=== PATIENT | male | born 1950 | race Caucasian/White ===

== ENCOUNTER 2018-10-05 05:38 | Inpatient (IN) ==
[2018-10-05] MEDS ORDERED: ceFAZolin Inj 2gm (Premix) 2 GM/50 ML BAG IV ONE ×2 (05:44→06:00)
[2018-10-05] MEDS ORDERED: Vancomycin Inj 1gm vial ONE ×2 (05:44→07:21)
[2018-10-05] MEDS ORDERED: Lactated Ringers 1,000 ML PRIMARY IV ONE ×7 (05:44→16:09)
[2018-10-05] MEDS ORDERED: LIDOCAINE W/ SODIUM BICARB 0.5 ML SYR ONE (05:45)
[2018-10-05] MEDS ORDERED: Sodium Chloride 0.9% 250 ML ONE ×2 (05:45→07:24)
[2018-10-05] MEDS ORDERED: LIDOCAINE W/ SODIUM BICARB 0.5 ML SYR SUBD ONE (06:00)
[2018-10-05] MEDS ORDERED: Nasal Sanitizer POPSWAB ampule 3 AMP (Nozin) PREOP DOSE ENOS SCH (06:00)
[2018-10-05 06:07] LABS: BILIRUBIN,URINE NEGATIVE (NEG); CLARITY,URINE CLEAR (CLEAR); COLOR,URINE YELLOW; GLUCOSE, URINE (UA) NEGATIVE (NEG); OCCULT BLOOD,URINE SMALL (NEG); PH,URINE 5.5 (5.0-8.5); PROTEIN,URINE NEGATIVE (NEG); UROBILINOGEN,URINE 0.2 mg/dL (0.2)
[2018-10-05 06:17] LABS: RBC,URINE 0 /hpf; SQUAMOUS EPITHELIAL CELL,UR RARE; URINE SAMPLE TYPE CLEAN CATCH URINE; WBC,URINE 0
[2018-10-05] MEDS ORDERED: IPRATROPIUM/ALBUTEROL SULFATE 3 ML NEB NEB ONE ×2 (06:51→06:56)
[2018-10-05] MEDS ORDERED: Sodium Chloride 0.9% vial 40 ML ONE (07:20)
[2018-10-05] MEDS ORDERED: BUPIVACAINE 0.25% W/ EPI - 10 ML VIAL ONE (07:20)
[2018-10-05] MEDS ORDERED: Gentamicin Inj 40 MG/ML VIAL ONE (07:20)
[2018-10-05] MEDS ORDERED: Sodium Chloride 0.9% vial 10 ML ONE (07:21)
[2018-10-05] MEDS ORDERED: PROPOFOL 10 MG/1 ML (200 MG/20 ML) VIAL IV ONE ×5 (07:21→18:00)
[2018-10-05] MEDS ORDERED: MIDAZOLAM 5 MG/1 ML ONE (07:21)
[2018-10-05] MEDS ORDERED: fentaNYL Inj 250 MCG/5 ML VIAL ONE (07:21)
[2018-10-05] MEDS ORDERED: BACITRACIN 50,000 UNIT VIAL IRRIG ONE ×3 (07:21→16:18)
[2018-10-05] MEDS ORDERED: Propofol 1,000 MG/100 ML VIAL IV ONE ×4 (07:21→14:37)
[2018-10-05] MEDS ORDERED: REMIFENTANIL 1 MG/1 ML IV ONE ×3 (07:22→15:26)
[2018-10-05] MEDS ORDERED: REMIFENTANIL HCL 2 MG VIAL IV ONE ×3 (07:22→15:26)
[2018-10-05] MEDS ORDERED: LIDOCAINE MPF 2% - 5 ML (20 MG/1 ML) ONE (07:29)
[2018-10-05] MEDS ORDERED: DEXAMETHASONE PF 10 MG/1 ML VIAL ONE (07:32)
[2018-10-05] MEDS ORDERED: LIDOCAINE HCL 2 % 10 ML JELLY URO-JECT TOPICAL ONE ×2 (07:48→08:43)
[2018-10-05] MEDS ORDERED: KETAMINE HCL 100 MG/2 ML SYRINGE IV ONE (07:49)
[2018-10-05] MEDS ORDERED: ceFAZolin 1 GM VIAL ONE ×2 (10:55→14:27)
[2018-10-05] MEDS ORDERED: Sodium Chloride 0.9% vial 20 ML ONE ×2 (11:27→16:18)
[2018-10-05] MEDS ORDERED: ePHEDrine Inj 50 MG/ML AMP ONE (16:42)
[2018-10-05] MEDS ORDERED: BUPivacaine Inj 0.25% PF - 10ml vial ONE (17:12)
[2018-10-05] MEDS ORDERED: BUPivacaine Liposome/PF (Exparel) Inj 20ml vial INFIL ONE (17:12)
[2018-10-05] MEDS ORDERED: Acetaminophen 1000mg Inj 1,000 MG/100 ML VIAL IV ONE (17:13)
[2018-10-05] MEDS ORDERED: HYDROmorphone 2 MG/1 ML ONE ×3 (17:18→20:43)
--- NOTE | 2018-10-05 18:41 | GEN.OPNOTE ---
Operative Note Surgery Date: 10/05/18 Preoperative Diagnosis: 1. Focal right-sided low back pain, mechanical in nature. 2. Status post recent left L2-3 microlumbar discectomy and bilateral L3-4 partial laminectomies and bilateral medial facetectomies performed by Dr. Ivy Medley on 09/17/2017. 3. Status post a remote L5-S1 anterior interbody and anterior and posterior instrumented fusion. 4. Multilevel advanced lumbar degenerative disc disease L2-3, L3-4, and L4-5 with collapse of the majority of the disc space at each level, pneumatization of the residual disc at each level, and marked sclerosis of the bony endplates. 5. Degenerative moderate dextroscoliosis centered at L2-3. 6. Lateral listhesis and angulation of L4 on L5 and L3 on L4. 7. Severe right L4 neural foraminal stenosis. Postoperative Diagnosis: 1. Focal right-sided low back pain, mechanical in nature. 2. Status post recent left L2-3 microlumbar discectomy and bilateral L3-4 partial laminectomies and bilateral medial facetectomies performed by Dr. Ivy Medley on 09/17/2017. 3. Status post a remote L5-S1 anterior interbody and anterior and posterior instrumented fusion. 4. Multilevel advanced lumbar degenerative disc disease L2-3, L3-4, and L4-5 with collapse of the majority of the disc space at each level, pneumatization of the residual disc at each level, and marked sclerosis of the bony endplates. 5. Degenerative moderate dextroscoliosis centered at L2-3. 6. Lateral listhesis and angulation of L4 on L5 and L3 on L4. 7. Severe right L4 neural foraminal stenosis. Procedure: 1.) Redo L2-3 lumbar laminectomy with medial facetectomies and foraminotomies bilaterally for decompression of central canal stenosis and severe left lateral recess stenosis. (CPT code: 23108). 2.) Redo L3-4 lumbar laminectomy with medial facetectomies and foraminotomies bilaterally for d ecompression of central canal and bilateral lateral recess stenosis. (CPT code: 11466). 3.) L4-5 lumbar laminectomy with medial facetectomies and foraminotomies bilaterally for decompression of the central canal and severe lateral recess and neuroforaminal stenosis. (CPT code: 56461). 4.) Arthrodesis, combined posterolateral with posterior interbody technique, L2-3 in preparation for interbody and posterolateral fusion of the L2-3 level. (CPT code: 52155). 5.) Arthrodesis, combined posterolateral with posterior interbody technique, L3-4 in preparation for interbody and posterolateral fusion of the L3-4 level. (CPT code: 13164). 6.) Arthrodesis, combined posterolateral with posterior interbody technique, L4-5 in preparation for interbody and posterolateral fusion of the L4-5 level. (CPT code: 56359). 7.) Insertion of a 7mm x 11mm x 23mm Tritanium PL titanium lumbar interbody cage, filled in the center with autograft into the L2-3 interspace for fusion of the L2-3 interspace. (CPT code: 73250). 8.) Insertion of a 7mm x 11mm x 28mm Tritanium PL titanium lumbar interbody cage, filled in the center with autograft into the L3-4 interspace for fusion of the L3-4 interspace. (CPT code: 98230). 9.) Insertion of a 8mm x 11mm x 28mm Tritanium PL titanium lumbar interbody cage, filled in the center with autograft into the L4-5 interspace for fusion of the L4-5 insterspace. 10.) Posterolateral segmental instrumentation L2-L5 using the Erasmo Neel 3 pedicle screw and israel system. (CPT code: 67782). 11.) Use of autograft harvested through the same incision, cleaned of soft tissue and morselized for interbody and posterolateral fusion. (CPT code: 45102). 12.) Use of 20cc of Erasmo Vitoss Bimodal Synthetic bone product (implantable allograft), 2cc of Imbibe (implantable allograft), 30cc of Erasmo BIO DBM Putty Plus Cancellous (implantable allograft), 60cc cancellous bone chips (implantable allograft) for interbody and posterolateral fusion. (CPT code: 56858). 13.) Use of Axonify computer assisted neuronavigation for cannulization of the L2, L3, L4, and L5 pedicles bilaterally for the subsequent placement of the L2, L3, L4, and L5 pedicle scres bilaterally. (CPT code: 16976). 14.) Use of intra- operative fluoroscopy for localization of the correct surgical levels and for the final confirmation of the placement of the intervertebral cages and for the final confirmation of the position of the posterolateral hardware elements. 15.) Use of intra-operative neuromonitoring including free running EMG's, triggered EMG's, and SSEP's. Surgeon: Kris Tobias MD Alumni Relations Officer: EDSON Killian Anesthesia Provider: Paulo Gordon CRNA Anesthesia Type: General Estimated Blood Loss (mL): 450 Fluids: See anesthesia record Pathology: None Indications: Mr. Adhikari is a 68 year old gentleman who is a previous patient of Dr. Cooper who underwent a left L2-3 microlumbar discectomy and bilateral L3-4 laminectomies with medial facetectomies performed on 09/07/17. Mr. Adhikari has continued to have right sided low back pain despite the surgical procedure. He is also status post a previous L5-S1 fusion. Mr. Adhikari had a lumbar myelogram post myelogram CT that demonstrated his L5-S1 posterior lumbar interbody fusion with posterior facet screws. He is completely fused at this level. He has marked degenerative disc disease at L2-3, L3-4 and L4-5 with essentially collapse of the disc spaced and pneumatization of the small residual disc space at each of these levels. There is marked endplate sclerosis at L2-3 on the left, L3-4 across the entire level but more predominant on the left and L4-5 predominantly on the right. There is lateral listhesis of L4 and L5 and angulation of the disc spaces at L3-4 and L4-5. This study demonstrated facet arthropathy and hypertrophy at L2-3 with widening of the facet joint on the left, a broad based disc bulge and ligamentous hypertrophy at this level producing mild central canal stenosis. At L2-3, there is facet arthropathy and hypertrophy with widening of the facet joints bilaterally but with a canal remaining patent at this level previously decompressed. At L4-5, there is marked facet arthropathy and hypertrophy particularly at the right L4-5 facet joint with pneumatization of this facet joint. There is severe narrowing of the L4 neuroforamen on the right. His symptoms failed to improve with non-operative therapies. We had discussed the option of proceeding with surgical treatment. We discussed that surgical treatment in my opinion would require a L2-3, L3-4, L4-5 interbody and posterolateral instrumented fusion. He wished to proceed with the surgical procedure. Findings: 1.) Severe left L2-3 lateral recess stenosis. 2.) Bilateral severe L3-4 lateral recess stenosis. 3.) Severe right L4 neuroforaminal stenosis. 4.) Extruded synovial tissue in the left lateral recess and bilateral L3-4 lateral recesses. Complications: None Operative Summary: Mr. Adhikari was met in the preoperative area. His surgical history and physical was reviewed. The procedure to be performed was confirmed with Mr. Adhikari and he was in agreement with the procedure and this matched what was written on the patient's consent form. Any questions that he or his had were answered before he was taken back to the operating room suite. Mr. Adhikari was brought back to the operating room suite and put under general anesthesia and intubated by the anesthesia staff. He had a Bhakta catheter placed in his bladder for the procedure. He had pneumatic compression hose placed on his lower legs bilaterally. Mr. Adhikari was carefully rolled over onto the Siva surgical table with his arms gently positioned upwards with her shoulders abducted less than 90. His arms were well-padded with foam padding on top of the padding the surgical armboards. The region of his chest and axilla was checked bilaterally to make sure that there are no pressure points over the region of the brachial plexus bilaterally. His nipples were checked be below the chest pad of the Siva table no pressure points. All bony prominences were well padded. His Bhakta catheter was checked be free from kinks. His pneumatic compression hose was attached pneumatic compression device. Mr. Adhikari's old incision from his previous surgeries was demarcated and extended rostrally and caudally with a skin marker with several crosshatches being made with a skin marker as well. He was prepped and draped in the usual and standard fashion. He was given 2 g of Ancef and 1 g of vancomycin IV for perioperative antibiosis. He was given 10 mg of Decadron IV. A standard surgical timeout was performed identifying the correct patient, the correct procedure, and the correct equipment being available for the procedure. The intended skin incision was injected subcutaneously with quarter percent Marcaine with 1 in 200,000 epinephrine. 20 mL of local anesthetic was used. The skin was incised with a 10 blade scalpel and all dermal and superficial bleeding points coagulated with bipolar cautery. Dissection was continued down through the subcutaneous tissue and scar tissue from the patient's previous surgeries down to the lumbosacral fascia. 2-0 Ethibond sutures were encountered from his previous fascial closures which were cut and removed. The fascia was incised along the borders of the spinous processes bilaterally and a defect in the posterior tension band with a missing spinous process filled in with scar tissue was noted and felt to be the location the patient's previous L3-4 laminectomy. Subperiosteal dissection was performed down the spinous processes and out over the lamina except in the region of his previous surgeries, the L2-3 level on the left and the L3-4 level bilaterally with the dissection was taken out laterally earlier in these regions to avoid entering into any previously decompressed areas of the spine. The final exposure was from the inferior aspect of the L5 1 lamina down to over the L5 lamina and the upper part of the sacrum bilaterally and laterally out over the L1-2, L2-3, L3-4, L4-5, and L5-S1 facet joints bilaterally. The dissection was taken out laterally over the L2, L3, L4, and L5 transverse processes. Cerebellar and Gelpi retractors were placed for self-retaining retraction. Soft tissue was cleaned over the posterior aspect of the spine using the large straight curette and a large Leksell rongeur. The heads of the L5-S1 facet screws were identified. The L5 and S1 spinous processes were gently tugged on confirming that these levels were completely fused with no motion between them, as was expected by pre-operative imaging. The posterior aspect of the hypertrophied L2-3, L3-4, and L4-5 facet joints were removed with a large Leksell rongeur. Extensive decortication was then performed of the L2, L3, L4, and L5 transverse processes as well as the lateral aspect of the L2-3 and posterior and lateral aspects of the L3-4, and L4-5 facet joints. The upper part of the sacrum was decorticated as well bilaterally. All decortication was performed with the Revert.IO high-speed electric drill with a matchstick bit. The bone dust created was collected and saved to be used as autograft for the fusion portion of the procedure. The 99 Fahrenheit neuro navigation reference arc was securely attached to the L1 spinous process and a spin was performed with the cookdinner 3-D fluoroscopy unit. The 99 Fahrenheit neuro navigation pedicle finder was then used to cannulate the L2, L3, L4, L5 pedicles bilaterally. A Jamshidi needle was placed into the L2 pedicle on the left and 20 mL of vertebral body bone marrow was collected and saved to be used to saturate the Erasmo Vitoss Bimodal synthetic bone product (allograft) for the posterior lateral fusion portion of the procedure. The internal aspect of the pedicles were all palpated with a small ball-tip instrument to assure that there are no cortical breaches. The pedicles were then all tapped with the appropriate size Erasmo Neel 3 pedicle tap. The internal aspect of the pedicles were then palpated with ball-tip instrument again. The pedicle screws were then placed. 5.5 x 55 mm pedicle screws were placed into the L2, L3, and L4 pedicles bilaterally. 6.5 x 60 mm pedicle screws were placed into the L5 pedicles bilate rally. The pedicle screws all obtained good purchase in the pedicle and vertebral body bone at each level bilaterally. The pedicle screws were then all interrogated with triggered EMGs all demonstrated to be over 30 mA in impedance indicating that they were not in close proximity to nerve structures. Another spin was performed the 3-D [facility] fluoroscopy unit providing further confirmation of the pedicle screws were indeed within the confines of the pedicles at each level bilaterally and that the pedicle screws were bicortical or nearly bicortical in purchase as intended. Attention was turned to the decompression portion of the procedure. The high- speed drill with a matchstick bit was used to extend the partial L3 laminectomy rostrally and the medial facetectomies laterally bilaterally. A complete laminectomy of L3 was performed. The hypertrophied ligament from underneath the remaining aspect of the L3 lamina was completely removed. A small straight curette was used to carefully dissect the scar tissue over the dura from the lateral aspect of the bony canal and lateral recesses bilaterally. Surgical findings at this level included central canal stenosis and bilateral lateral recess stenosis significant bilaterally but severe on the right secondary to extruded synovium in the lateral recesses bilaterally but with a much larger amount of extruded synovial tissue in the right lateral recess. This extruded synovial tissue was very carefully and tediously dissected off of the thecal sac and removed decompressing the lateral recesses bilaterally. The exiting L3 and transversing L4 nerves were identified. Foraminotomies were performed bilaterally. A partial laminectomy of L2 was then performed bilaterally, which was a redo procedure on the left. A medial facetectomy was performed on the right redo medial facetectomy was performed on the left. Surgical findings included central canal stenosis as well as left lateral recess stenosis secondary to a combination of extruded synovium and thickened ligamentum flavum as well as herniated disc material into the lateral recess at this level. All of the soft tissues were carefully dissected from the thecal sac and removed decompressing the left lateral recess. Foraminotomies were performed bilaterally. A complete L4 laminectomy was performed with partial L5 laminectomy removing the leading edge of the L5 lamina and medial facetectomies were performed as well. There was central canal but particularly lateral recess stenosis encountered bilaterally severe on the right and severe right L4 neuroforaminal stenosis was identified as well. Much of this was secondary to bony overgrowth from the medial aspect of the L4-5 facet joint but also secondary to thickened ligamentum flavum. The lateral recess was completely decompressed by the removal of the bony arthropathy and hypertrophied ligament. Foraminotomies were performed bilaterally decompressing the severe right L4 neuroforaminal stenosis. Excellent decompression of the spinal canal lateral recesses nerve foramen was assured both by visual inspection as well as by palpation with the Dickens instrument in the canal in the lateral recesses and around the nerve structures passing the instrument above and below the exiting nerve roots as they exited out the neuroforamen and passing the Dickens instrument above and below the transversing nerve roots as it transversed medial to the pedicles. The medial facetectomy on the left at L2-3 and the medial facetectomies on the right at L3-4 and L4-5 were extended laterally with a high-speed drill with a matchstick bit to provide the proper exposure needed for the placement of the intervertebral cages for the interbody fusion portion of the procedure. The ventral aspect of the dura at the L2-3 level and at the L3-4 level was carefully dissected from its scar tissue attachments to the disc space from the previous surgeries at these levels. This allowed the dura and transversing nerve roots a t these levels to be carefully retracted with the Lea nerve root retractor which was performed at the L4-5 level on the right as well with the same instrument. At each level annulotomy as were performed with a 15 blade scalpel with disc material being removed from the disc space with pituitary rongeurs. Additional disc and cartilaginous endplate was removed at each level using the K2 to 7 mm disc space shaver. Additional disc was removed from the disc spaces at L2-3 L3-4 and L4-5 using the straight pituitary rongeur as well as the up- biting pituitary rongeur. A down-biting medium and down-biting large Jesse curette were then used to loosen disc laterally in the disc spaces with these loosened fragments of disc space then being removed with a pituitary rongeur. The large down-biting Jesse curette was then used to decorticate the L2 and L3 endplates in the L2-3 interspace. The same instrument was used to decorticate the L3 and L4 endplates and the L3-4 interspace. The same instrument was used to decorticate the L4 and L5 endplates in the L4-5 interspace. The interspaces were irrigated with bacitracin irrigation. Approximately 2- 2.5cc of 99 Fahrenheit BIO DBM Putty Plus cancellus (allograft) was placed into each interspace and moved anteriorly with a bone tamp. The interspaces were sized for the appropriate size lumbar interbody cages. A 7 mm x 11 mm x [address] titanium lumbar interbody cage was selected and filled in the center with autograft and inserted into the L2-3 interspace with the potato sorter. The cage was gently countersunk with a bone tamp and mallet. The cage obtained good purchase between the L1 to and L3 endplates. A 7 mm x 11 mm x [address]im [address] titanium lumbar interbody cage was selected and filled in the center with autograft and inserted into the L3-4 interspace with the potato sorter. The cage was gently countersunk and rotated with a bone tamp and mallet. The cage obtained good purchase between the L3 and L4 endplates. A 8 mm x 11 mm x [address] titanium lumbar interbody cage was selected and filled in the center with autograft and inserted into the L4-5 interspace with the potato sorter. The cage was gently countersunk and rotated with a bone tamp and mallet. The cage obtained good purchase between the L4 and L5 endplates. The final position of all of the intervertebral cages was then confirmed with lateral fluoroscopy. Attention was turned back to the instrumentation portion of the procedure. 6 mm x 90 mm pre-bent lordotic Erasmo Neel 3 titanium rods were selected and placed into the [place] of the L2-L5 pedicle screws bilaterally. Set screws were then placed over the rods in the [place]ips of the L2-L5 pedicle screws bilaterally. The set screws were first tightened down hand tight over the rods and they were then tightened down to their final tightness using the torque counter torque device. A 53-73 mm cross-link was then placed between the construct connecting the rods between the L3 and L4 pedicle screws. The cross-link was tightened down squeaky tight over the rods bilaterally as well as the center screw of the cross-link. The surgical site had been periodically irrigated with bacitracin irrigation multiple times throughout the surgical procedure. At this point the surgical site was irrigated with a bottle of hydrogen peroxide solution. The surgical site was then pulse lavaged with 3 L of bacitracin/vancomycin/gentamicin solution. 10 mL of [place] Vitoss Bimodal synthetic bone product (allograft) soaked in 10 mL of vertebral body bone marrow was then placed lateral to the hardware construct from the L2 transverse process to the L5 transverse process and caudally over the remaining aspect of the L5 lamina and the upper part of the sacrum bilaterally. 60 mL of cancellus bone chips (allograft) mixed with the remaining autograft was then split with half of this product being placed lateral to the hardware construct over the the tops synthetic bone product from the L2 transverse process to the L5 transverse process and caudally over the remaining aspect of the L5 lamina and the upper part of the sacrum bilaterally. The remaining 20 mL of [place] bio DBM putty plus cancellus that had been infused with 2mL of Imbibe (implantable allograft) was split with half of this about being placed lateral to the hardware construct over the cancellus bone chips from the L2 transverse process to the L5 transverse process and caudally over the remaining aspect the L5 lamina and the upper part of the sacrum bilaterally. The canal lateral recesses were inspected for any bone chips. Any identified were removed with a forceps. The canal and lateral recesses were irrigated with a small amount of bacitracin irrigation which was subsequently removed with suction. FloSeal hemostatic agent was placed in the lateral recesses and over all exposed dural elements. The canal was then covered with Gelfoam. A medium Hemovac drain was placed into the surgical site. Final AP and lateral radiographic images were performed. The closure portion of the procedure was begun. The fascial layer was closed tightly with #1 Vicryl suture in an interrupted fashion. The deep subcutaneous tissue and fascia was reapproximated with #1 Vicryl suture in an interrupted fashion. The more superficial subcutaneous tissue was reapproximated with 2-0 Vicryl suture in a interrupted fashion. The dermis and superficial subcutaneous tissue was reapproximated with 3-0 Vicryl suture in a inverted interrupted fashion. The Ioban drape was pulled back from the skin edges. The final layer closure was performed surgical stainless steel lori. The incision was cleansed with bacitracin soaked sponge and dried with a sterile dry sponge. The incision was dressed with a Covaderm dressing. The surgical drain was secured with suture. The drain site was dressed. All surgical drapes removed from Mr. Adhikari. He was carefully rolled over onto the PACU stretcher. He was awoken and extubated by the anesthesia staff. He was taken to the recovery room in stable condition. All surgical counts reported as correct by the scrub and circulating personnel. A physician's assignment desk assistant, Mrs. Brigida See PA-C, assisted with the procedure including the exposure and closure portions of the procedure. She also provided irrigation and suctioning throughout the procedure. She also skillfully and c arefully retracted the nerve structures during the more critical portions of the procedure such as the discectomy and intervertebral cage placement portions of the procedure.
[2018-10-05] MEDS ORDERED: LIDOCAINE W/ SODIUM BICARB 0.5 ML SYR SUBD PRN (18:57)
[2018-10-05] MEDS ORDERED: ONDANSETRON 4 MG/2 ML VIAL IVP PRN ×2 (18:57→20:49)
--- NOTE | 2018-10-05 18:59 | CRNA.PROGR ---
Anesthesia Recovery Phase I - Post Anesthesia Evaluation Patient's Condition on Arrival in Phase I: Stable Pain Level: 1
[2018-10-05] MEDS ORDERED: Lactated Ringers 1,000 ML PRIMARY IV SCH (19:00)
--- NOTE | 2018-10-05 19:02 | CRNA.PROGR ---
Anesthesia Time - Procedure/Recovery Time Start Date: 10/05/18 End Date: 10/05/18 Anesthesia : Time In: 07:34 Anesthesia : Time Out: 18:48 Anesthesia : Total Time: 674 - Total Anesthesia Time Total Anesthesia Time (minutes): 674 - Other Weight: 79.832 kg Height: 5 ft 8 in Body Mass Index (BMI): 26.7 Physical Status: P2 Anesthesia Type: General Anesthesia : ET
[2018-10-05] MEDS: HYDROmorphone 2 MG/1 ML IVP PRN ×3 (19:57→20:38)
--- NOTE | 2018-10-05 20:47 | NEURO.PROG ---
Subjective Post Op Day: 0 Pain Management: IV Bhakta Catheter: Yes Additional Details: In PACU, about to be transferred to med/surg floor. Waking up. Opens eyes. Facial swelling. Not conversant yet, but follows simple commands. Moving all extremities. Spoke with hospitalist about patient. PLAN: 1.) Transfer to floor. 2.) Continue post-operative antibiotics. 3.) Continue post-operative pain control; switch from IV to PO analgesics. 4.) Advance diet. 5.) Start to mobilize in am. Objective : Data - Vital Signs Vital Signs and I&O: Vital Signs - Last Taken Temperature 98.7 F 10/05/18 20:00 Pulse Rate 88 10/05/18 20:20 Respiratory Rate 12 10/05/18 20:20 Blood Pressure 126/72 10/05/18 20:20 Pulse Ox 98 10/05/18 20:20 Intake and Output (24hr x 4 totals) 10/03/18 10/04/18 10/05/18 10/06/18 05:59 05:59 05:59 05:59 Intake Total 7000 / 7000 Output Total 950 / 950 Balance 6050 / 6050
[2018-10-05] MEDS ORDERED: Prochlorperazine Edisylate Inj 10mg/2ml vial IVP PRN (20:49)
[2018-10-05] MEDS ORDERED: HYDROcodone-APAP 7.5 MG-325 MG TABLET PO PRN (20:49)
[2018-10-05] MEDS ORDERED: BISACODYL 5 MG TABLET PO PRN (20:49)
[2018-10-05] MEDS ORDERED: Fleet Enema 133ml RECTAL PRN (20:49)
[2018-10-05] MEDS ORDERED: MORPHINE SULFATE 2 MG/1 ML IVP PRN ×2 (20:49→23:03)
[2018-10-05] MEDS ORDERED: Ondansetron ODT Tab 4 MG TAB PO PRN (20:49)
[2018-10-05] MEDS ORDERED: MAGNESIUM 400 MG/5 ML - 30 ML (MILK OF MAGNESIA) PO PRN (20:49)
[2018-10-05] MEDS ORDERED: HYDROcodone-APAP 5 MG -325 MG TABLET PO PRN (20:49)
[2018-10-05] MEDS ORDERED: Vancomycin-PHA to Dose IV SCH (20:49)
[2018-10-05] MEDS ORDERED: MAGNESIUM CITRATE 296 ML SOLUTION PO PRN (20:49)
[2018-10-05] MEDS ORDERED: PROMETHAZINE 25 MG/1 ML VIAL IM PRN (20:49)
[2018-10-05] MEDS ORDERED: GABAPENTIN 100 MG CAPSULE PO SCH (21:00)
[2018-10-05] MEDS ORDERED: BUPROPION HCL 100 MG PO SCH (21:00)
[2018-10-05] MEDS ORDERED: Simvastatin Tab 20 MG TAB PO SCH (21:00)
[2018-10-05 21:46] LABS: VENOUS PH 7.48 (7.32-7.42)
--- NOTE | 2018-10-05 21:47 | CONSULT ---
Consult Note - Consult Consult Date: 10/05/18 Reason for Consult: Other Requesting Physician: Dr. Tobias Primary Care Provider: NONE NONE - History of Present Illness History of Present Illness: This is a 68 years old male with medical history significant for history of hypothyroidism, low back pain secondary to lumbar stenosis, hyperlipidemia, who came into the hospital to have surgery and was done by Dr. Tobias today. The hospitalist service were consulted for management of medical issues. Apparently this was a long surgery more than 9 hours. Based on My discussion with Dr. Tobias the patient did have like 500 blood loss during surgery. When I went to see the patient postoperatively he was very confused couldn't tell me his name can't get any information from him. It looked initially that he moved mainly the right side. His breathing pattern was also irregular. We did a venous blood gas that did not show evidence of CO2 retention. Slowly there was improvement in his strength and he started to say simple words. He did tell me that his name is Aidan but that's more than a half hour after he's been on the floor. Otherwise no other meaningful information can be obtained from him. He followed some of the commands. His strength on the left side started to improve. The history is obtained from talking to his and reviewing the notes. Past Medical History Medical History: 1. History of hypothyroidism. 2. History of hyperlipidemia. 3. History of depression Surgical History: 1. History of back surgery in [place] last year. 2. History of previous shoulder surgeries Family History: Reviewed an Not Pertinent Past Social History: He used to smoke according to now chews tobacco, no history of drugs no alcohol. Lives with his in [place]. Tobacco Use: Never Smoker In the Past 12 Months, Have Used or Abuse Any of the Following Substance: None Review of Systems - Review of Systems ROS Unobtainable: Due to Mental Status Medication / Allergies Home Medications: Home Medications Medication Instructions Recorded Confirmed Type bupropion HCl 100 mg tablet 100 mg PO BID 05/12/18 10/05/18 History dextroamphetamine 10 mg tablet 10 mg PO BID 05/12/18 10/05/18 History escitalopram 20 mg tablet 20 mg PO QDAY tab 05/12/18 10/05/18 History gabapentin 100 mg capsule 100 mg PO TID cap 05/12/18 10/05/18 History levothyroxine 75 mcg capsule 75 mcg PO QDAY 05/12/18 10/05/18 History simvastatin 20 mg tablet 20 mg PO QPM 05/12/18 10/05/18 History trazodone 100 mg tablet 100 mg PO QDAY 05/12/18 10/05/18 History zolpidem 5 mg tablet 5 mg PO QHS PRN 05/12/18 10/05/18 History cyclobenzaprine 5 mg tablet 5 mg PO QDAY PRN #60 tab 09/22/18 10/05/18 Rx Allergies/Adverse Reactions: Allergies Allergy/AdvReac Type Severity Reaction Status Date / Time oxycodone [From OxyContin] AdvReac Hallucinati Verified 10/05/18 06:10 ons Exam - Vitals Vital Signs: Vital Signs Temperature 98.7 F Pulse Rate 93 Respiratory Rate 14 Blood Pressure 135/68 Pulse Ox 98 Oxygen Flow Rate 4 Oxygen Delivery Method Mask-Simple Height 5 ft 8 in Weight 176 lb - General Additional General Exam Details: Patient is confused. Moaning at times. Opening his eyes at times spontaneously. Initially could not tell me even his name. Did not follow all the commands and seemed to be weaker on the left side but with time things started to improve. - Head Head Exam: Normal Inspection - Eye Eye Exam: POSITIVE: Normal Appearance - ENT ENT Exam: POSITIVE: Normal Exam - Neck Neck Exam: Normal Inspection - Respiratory Respiratory Exam: POSITIVE: Clear to Auscultation - Bilaterally - Cardiovascular Cardiovascular Exam: POSITIVE: RRR - GI/Abdominal GI/Abdominal Exam: POSITIVE: Normal Bowel Sounds, Non Tender, Non Distended, Soft, No Organomegaly - Rectal Rectal Exam: POSITIVE: Deferred - External Exam: POSITIVE: Deferred Exam: POSITIVE: Deferred - Extremities Additional Extremities Exam Details: There is evidence of edema in his hands. - Neurological Additional Neurological Exam Details: Sleepy but arousable confused. Slowly improving though. Strength as I said initially was weak on the left side and started to improve. Initially he did not follow commands slowly started to improve with following some of the commands. Pupils equal and reactive. Tone is more flaccid on the left but slowly is improving. - Psychiatric Psychiatric Exam: POSITIVE: Flat Affect - Integumentary Integumentary Exam: POSITIVE: Normal Color Assessment and Plan - Patient Problems (1) Confusion Current Visit: Yes Status: Acute Comment: I did tell the I think this is medication effect. I did venous blood gas which did not show evidence of CO2 retention. I think will put him on telemetry and oximetry will watch his vital signs. I think with time the anesthetic effect will wear off. If not I think I will do a CAT scan of his head in the morning. I think we'll hold off on starting his gabapentin and Wellbutrin tonight and restart those in the morning. He has edema in his the hands I think once we know his urine output tonight then see how things looks tomorrow then maybe consider diuresing him. Code(s): R41.0 - Disorientation, unspecified (2) Depression Current Visit: No Status: Acute Comment: We'll resume his medication on the morning once he is more awake and with it. Code(s): F32.9 - Major depressive disorder, single episode, unspecified (3) Thyroid disease Current Visit: No Status: Acute Comment: Same med Code(s): E07.9 - Disorder of thyroid, unspecified
[2018-10-05] MEDS: Acetaminophen 1000mg Inj 1,000 MG/100 ML VIAL IV PRN (22:39)
[2018-10-05] MEDS: ceFAZolin Inj 1 GM in Sodium Chloride 0.9% 100 ML IV SCH (22:57)
[2018-10-05 23:04] LABS: BLOOD UREA NITROGEN 19 mg/dL (7-22)
[2018-10-05] MEDS: DIAZEPAM 5 MG TABLET PO PRN (23:27)
[2018-10-06] MEDS: HYDROcodone-APAP 10 MG-325 MG TABLET PO PRN ×5 (00:49→22:08)
[2018-10-06] MEDS: HYDROmorphone 2 MG/1 ML IVP PRN ×2 (02:25→12:04)
[2018-10-06] MEDS: LEVOTHYROXINE 75 MCG TABLET PO SCH (04:48)
[2018-10-06] MEDS: ceFAZolin Inj 1 GM in Sodium Chloride 0.9% 100 ML IV SCH (05:34)
[2018-10-06] MEDS ORDERED: HYDROmorphone 2 MG/1 ML IVP ONE (05:38)
[2018-10-06] MEDS ORDERED: DIAZEPAM 10 MG/2 ML (5 MG/1 ML) CARPUJECT IVP PRN (06:17)
--- NOTE | 2018-10-06 06:38 | NEURO.PROG ---
Subjective Post Op Day: 1 Pain Management: PO Fonseca Catheter: Yes Diet: Regular Ambulating: No Additional Details: Mr Adhikari is awake and alert, moving all 4 extremities. He is oriented to person, place and time. His peripheral neuro checks are strong bilateral hand master ocean and arm raise consistent with preoperative limitations s/p bilateral shoulder surgery, strong bilateral plantar and dorsi flexion and leg raise. He denied numbness or tingling but reported anterolateral left thigh pain and pain at the surgical site. He continues to have facial and bilateral hand edema, but it is improved from last night. He spoke with Dr. Tobias on rounds this morning and told him he had leg numbness, though he had just told me he did not have any numbness, just thigh pain. He also told Dr. Tobias he was in a lot of pain, and Dr. Tobias reminded him that this was discussed preoperatively. Dilaudid was added to his pain medication prn orders and prn IV valium. Continuous pulse oximetry was ordered. His wound drain has 150ml in 8 hrs of bloody drainage so we will not discontinue the drain at this point. He has stood at the side of the bed so will plan to discontinue his fonseca catheter. Labs are pending. Plan: Continue to work on pain management Continue back drain Discontinue fonseca catheter Mobilize Objective : Data - Labs CBC and BMP: 10/05/18 22:50 - Vital Signs Vital Signs and I&O: Vital Signs - Last Taken Temperature 97.5 F 10/06/18 04:42 Pulse Rate 109 H 10/06/18 04:42 Respiratory Rate 22 10/05/18 23:50 Blood Pressure 131/68 10/06/18 04:42 Pulse Ox 95 10/06/18 04:42 Intake and Output (24hr x 4 totals) 10/04/18 10/05/18 10/06/18 10/07/18 05:59 05:59 05:59 05:59 Intake Total 7000 / 7000 Output Total 1840 / 1840 Balance 5160 / 5160
[2018-10-06 07:11] LABS: BASOPHILS # (AUTO) 0.04 10*3/UL; BASOPHILS % (AUTO) 0.4 % (0-1); EOSINOPHILS # (AUTO) 0.03 10*3/UL; EOSINOPHILS % (AUTO) 0.3 % (0-8); Hematocrit [HCT] 29.2 % (42.0-52.0); Hemoglobin [HGB] 9.6 g/dL (14.0-18.0); LYMPHOCYTES # (AUTO) 2.28 10*3/uL; MEAN CORPUSCULAR HEMOGLOBIN 31.2 PG (27-31); MEAN CORPUSCULAR HGB CONC 32.9 g/dL (33-37); MEAN CORPUSCULAR VOLUME 94.8 FL (80-90); MEAN PLATELET VOLUME 8.5 FL (7.4-12.2); MONOCYTES # (AUTO) 1.35 10*3/UL (0.3-0.8); MONOCYTES % (AUTO) 12.8 % (5-15); NEUTROPHILS # (AUTO) 6.83 10*3/UL; NEUTROPHILS % (AUTO) 64.6 % (50-80); RED BLOOD COUNT 3.08 10^6/uL (4.70-6.10)
[2018-10-06] MEDS ORDERED: HYDROmorphone 2 MG/1 ML IVP PRN (07:11)
[2018-10-06] MEDS: PANTOPRAZOLE 40 MG TABLET PO SCH (07:18)
[2018-10-06 07:22] LABS: PLATELET MORPHOLOGY COMMENT NORMAL MORPHOLOGY (NORM); RBC MORPHOLOGY COMMENT NORMAL MORPHOLOGY (NORM); WBC MORPHOLOGY COMMENT NORMAL MORPHOLOGY (NORM)
[2018-10-06 07:24] LABS: BLOOD UREA NITROGEN 19 mg/dL (7-22); BUN/CREATININE RATIO 21.11 (6-20)
[2018-10-06] MEDS ORDERED: BUPROPION HCL 100 MG PO SCH (09:00)
[2018-10-06] MEDS: ESCITALOPRAM 10 MG TABLET PO SCH (09:12)
[2018-10-06] MEDS: DEXTROAMPHETAMINE SULFATE 10 MG PO SCH ×2 (09:12→16:20)
[2018-10-06] MEDS: GABAPENTIN 100 MG CAPSULE PO SCH ×3 (09:12→20:27)
--- NOTE | 2018-10-06 10:41 | PDOC(PROG) ---
Interval History: Patient is doing much better today he is not confused any longer oriented to person time and place. I tried to discuss him not using Valium but he said this really helps him and Dr. Tobias has recommended for sleep we will not be changing any medication. Since he is not confused any longer. Ambien does not help him denies chest pain nausea or vomiting Objective : Data - Labs CBC and BMP: 10/06/18 06:55 10/06/18 06:55 Objective : Exam - General General Appearance: Cooperative - Cardiovascular Cardiovascular Exam: RRR, No Murmur, No Clicks, No Gallops, No Rubs, PMI Non- Displaced - GI/Abdominal GI/Abdominal Exam: Normal Bowel Sounds, Non Tender, Non Distended, Soft, No Masses, No Hepatomegaly, No Splenomegaly, No Organomegaly - Extremities Extremities Exam: No Clubbing Present, No Edema Present, No Cyanosis Present Assessment and Plan - Patient Problems (1) Confusion Current Visit: No Status: Acute Comment: This is resolved most likely from anesthesia I discussed the case with nurse e commerce solution architect early childhood teacher assistant which agrees Code(s): R41.0 - Disorientation, unspecified (2) Depression Current Visit: No Status: Acute Comment: Stable most likely from chronic pain Code(s): F32.9 - Major depressive disorder, single episode, unspecified (3) Thyroid disease Current Visit: No Status: Acute Comment: Continue replacement Code(s): E07.9 - Disorder of thyroid, unspecified (4) Insomnia Current Visit: No Status: Acute Comment: On Valium by Dr. Tobias Code(s): G47.00 - Insomnia, unspecified (5) Chronic back pain Current Visit: No Status: Acute Comment: Status post surgery defer DVT prophylaxis and pain control to the neurosurgery team Code(s): M54.9 - Dorsalgia, unspecified; G89.29 - Other chronic pain Qualifiers: Back pain location: low back pain Back pain laterality: right Sciatica presence: without sciatica Qualified Code(s): M54.5 - Low back pain; G89.29 - Other chronic pain
--- NOTE | 2018-10-06 11:32 | EKG ---
[address] [address] Measurements Intervals [place] Rate: 110 P: MS: 0 QRS: 71 QRSD: 103 T: 252 QT: 309 QTc: 374 Interpretive Statements SINUS RHYTHM ST DEVIATION AND MODERATE T-WAVE ABNORMALITY, CONSIDER INFERIOR ISCHEMIA No previous ECG available for comparison Electronically Signed On 10-06-18 14:11:32 MST by Santy Boyle [email or web address]
--- NOTE | 2018-10-06 12:03 | DI ---
US Carotids Bilateral,10/06/2018 10:42 AM: Clinical History: Confusion and possible TIA Previous Exam: None at this facility. Findings: Multiple grayscale and color Doppler sonographic images are obtained through the carotid systems bila terally, and demonstrate normal mild peripheral vascular disease within the carotid bulbs bilaterally . There is no significant spectral broadening. Peak systolic velocities are as follows: RIGHT- Common carotid artery: 137 cm/s. Internal carotid arteries: 154 cm/s. Flow within the vertebral artery is antegrade. The ICA to CCA ratio measures 1.1 LEFT- Common carotid artery: 133 cm/s. Internal carotid artery: 181 cm/s. Flow within the vertebral arteries is antegrade. ICA to CCA ratio measured 1.4. Impression: Above findings correspond with estimated degree of stenosis within the internal carotid arteries of b etween 50 and 69%. There is some elevated flow within the prominent carotid arteries as well which wo uld correspond with an estimated degree of stenosis of between 50 and 69%.
[2018-10-06] MEDS ORDERED: Magnesium Sulfate 2gm (Premix) 2 GM/50 ML BAG IV ONE (12:10)
--- NOTE | 2018-10-06 12:43 | PTI REPORT ---
Thank you for the referral of Aidan Adhikari. He was seen on 10/06/18 for an inpatient evaluation status post lumbar fusion. SUBJECTIVE: The patient is a 68-year-old male. The nurses report the patient had altered cognitive status last night. His surgery lasted almost 14 hours and they are believing this is due to prolonged influence of anesthesia. The patient's was present and she states that he is still in a mental fog; however, is getting much better. She states he was having difficulty even talking last night but is steadily improving. The patient initially was about 75% accurate in conversing with an appropriate conversation with the therapist, at times forgetting what he was saying or what he was doing; however, he is agreeable to participate with therapy. PAST MEDICAL HISTORY: Past medical history can be found in the patient's medical record. OBJECTIVE FINDINGS: Pain: The patient reports having pain but is unable to rate it on the verbal analog scale at this time. The patient also had complaints of continuous itching, which he believes is from his surgery yesterday. Bed mobility: The patient was able to perform bed mobility from supine to edge of bed with verbal cues for encouragement and proper hand placement as well as log rolling. Incision: Incision was unable to be inspected due to the post operative bandage. Strength: Official strength testing was not performed due to surgical precautions; however, he was able to sit unsupported edge of bed greater than five minutes without difficulty as well as perform long arc quads and ambulatory and transfer activities. Transfers: The patient was able to perform sit to stand transfers with constant verbal cues for proper hand placement for safety awareness. Ambulation: The patient demonstrated the ability to ambulate up to 8 feet within his room, limited by his IV and oxygen tubing. ASSESSMENT: Problem List: Decreased safety awareness Decreased endurance Decreased strength Decreased mobility Physical Therapy Goals: To be met by discharge from inpatient: Patient will be able to don/doff and adjust his back brace independently. Patient will be able to ambulate up to 100 feet with appropriate assistive device for community and household ambulation. Patient will be able to perform all bed mobility and transfers independently for safety with return to home. TREATMENT PLAN: Patient will be seen B.I.D during the week and one time per day over the weekend as an inpatient to address the above goals and objectives. INITIAL TREATMENT: Treatment today consisted of the initial evaluation. The patient was fitted for and issued an [place] contour back brace. The patient was unable to independently don or doff brace at this time, more due to cognition than physical limitations; however, his was present and she was able to demonstrate verbal understanding as well as return demonstration on proper donning and doffing and adjustment of the brace. The patient performed bed mobility from supine to edge of bed as well as the following therapeutic exercises: sit to stands, unsupported seated long arc quads, heel raises, active ankle pumps, quad sets, and glut sets. He was able to ambulate with walker, gait belt, back brace, and contact guard assistance x8 feet within his room before being transferred to the chair. JUDI
--- NOTE | 2018-10-06 12:59 | DI ---
CT CTA Chest Non-Coronary WWO,10/06/2018 11:22 AM: Clinical History: Telemetry changes Previous Exam: None at this facility. Findings: Multiple helically acquired CT images are obtained through the chest following the intravenous admini stration of 55 cc of Isovue 300, and demonstrates airspace disease within the lung bases most likely representing atelectasis. The pulmonary arteries are normal without filling defect or truncation. The upper abdomen is unremarkable. There is gentle levoscoliosis of the mid thoracic spine. A few coronary artery calcifications are seen. A few peripheral vascular calcifications are seen as w ell. There is no effusion. Impression: 1. No evidence of pulmonary embolism. 2. Subsegmental atelectasis in the lung bases.
[2018-10-06] MEDS: DIAZEPAM 5 MG TABLET PO PRN ×2 (13:43→20:27)
--- NOTE | 2018-10-06 16:05 | PT.PROG ---
Progress Note Progress Note: S. Patient stated that he would go for a walk. O. Patient ambulated 70 feet in the flower and back to his bed where he was left with alarm and call light. A. Patient tolerated ambulation fair, he required min assist with transfers and ambulation, he continues to be a little groggy and fatigues quickly. He would c ontinue to benefit from skilled therapy to increase strength, endurance and safety at this time. P. Continue POC.
[2018-10-06] MEDS: traZODone Tab 50 MG TAB PO SCH (20:26)
[2018-10-06] MEDS: Simvastatin Tab 20 MG TAB PO SCH (20:27)
[2018-10-06] MEDS: BUPROPION HCL 100 MG PO SCH (21:21)
[2018-10-07] MEDS: HYDROcodone-APAP 10 MG-325 MG TABLET PO PRN ×4 (02:50→15:45)
[2018-10-07] MEDS: LEVOTHYROXINE 75 MCG TABLET PO SCH (04:41)
[2018-10-07] MEDS ORDERED: LIDOCAINE HCL 2 % 10 ML JELLY URO-JECT TOPICAL PRN (05:47)
[2018-10-07] MEDS: DIAZEPAM 5 MG TABLET PO PRN (07:13)
[2018-10-07] MEDS: DOCUSATE 100 MG CAPSULE PO PRN ×2 (07:13→23:43)
[2018-10-07] MEDS: PANTOPRAZOLE 40 MG TABLET PO SCH (07:14)
[2018-10-07] MEDS: DEXTROAMPHETAMINE SULFATE 10 MG PO SCH ×2 (07:21→15:46)
--- NOTE | 2018-10-07 09:05 | CRNA.PROGR ---
Anesthesia Note - Progress Notes Anesthesia Progress Note: Post OP Anesthesia Note Pt was seen at 1000 on 10/06/18. Pt was sitting up in bedside chair, alert and oriented x 3. He states he is a little sore but pain seems to be well under control. He has been up for PT today, tolerating a regular diet, and has been up the restroom with minimal assistance. Nursing staff report that he had some sundowners syndrome through the night but they report that it has resolved. Currunt VS are stable. Vital Signs (24 hrs) 10/06/18 10:57 10/06/18 10:58 10/06/18 11:00 Temperature 97.7 F Pulse Rate 111 H Pulse Rate [Pulse Oximeter] 117 H Respiratory Rate 18 Blood Pressure [Left Arm] Blood Pressure [Right Arm] 107/58 Pulse Ox 92 93 10/06/18 15:00 10/06/18 16:05 10/06/18 16:06 Temperature 97.6 F Pulse Rate 108 H Pulse Rate [Pulse Oximeter] 105 H Respiratory Rate 19 Blood Pressure [Left Arm] Blood Pressure [Right Arm] 137/69 Pulse Ox 90 90 10/06/18 18:45 10/06/18 19:00 10/06/18 23:00 Temperature 97.7 F Pulse Rate 114 H 120 H Pulse Rate [Pulse Oximeter] 110 H Respiratory Rate 22 Blood Pressure [Left Arm] Blood Pressure [Right Arm] 115/70 Pulse Ox 95 92 93 10/06/18 23:54 10/07/18 03:00 10/07/18 04:05 Temperature 98.0 F Pulse Rate 100 Pulse Rate [Pulse Oximeter] 121 H Respiratory Rate 22 Blood Pressure [Left Arm] Blood Pressure [Right Arm] 106/65 Pulse Ox 91 92 95 10/07/18 04:12 10/07/18 07:00 10/07/18 07:23 Temperature 97.5 F 98.4 F Pulse Rate Pulse Rate [Pulse Oximeter] 100 110 H Respiratory Rate 18 20 Blood Pressure [Left Arm] 110/63 118/69 Blood Pressure [Right Arm] Pulse Ox 91 97 97
[2018-10-07] MEDS: GABAPENTIN 100 MG CAPSULE PO SCH ×3 (09:08→20:54)
[2018-10-07] MEDS: TAMSULOSIN 0.4 MG CAPSULE PO SCH (09:08)
[2018-10-07] MEDS: ESCITALOPRAM 10 MG TABLET PO SCH (09:08)
--- NOTE | 2018-10-07 11:06 | PDOC(PROG) ---
Interval History: Patient is doing well last night he had complained of chest pain troponins and EKG and CT of the chest were all normal. Bhakta had to be incised inserted in the middle the night for urinary retention. Out today patient was given Flomax actually urinated once on them spinal himself. No chest pain alert and oriented to place time and person Objective : Data - Labs CBC and BMP: 10/06/18 06:55 10/06/18 06:55 Objective : Exam - General General Appearance: No Acute Distress, Cooperative - Respiratory Respiratory Exam: Clear to Auscultation - Bilaterally, Breathing Non Labored, Normal To Percussion, Normal to Percussion and Palpation - Cardiovascular Cardiovascular Exam: RRR, No Murmur, No Clicks, No Gallops, No Rubs, PMI Non- Displaced - GI/Abdominal GI/Abdominal Exam: Normal Bowel Sounds, Non Tender, Non Distended, Soft, No Masses, No Hepatomegaly, No Splenomegaly, No Organomegaly Assessment and Plan - Patient Problems (1) Confusion Current Visit: No Status: Acute Comment: Resolved back to his baseline most likely secondary to anesthesia Code(s): R41.0 - Disorientation, unspecified (2) Depression Current Visit: No Status: Acute Comment: On antidepressants Code(s): F32.9 - Major depressive disorder, single episode, unspecified (3) Thyroid disease Current Visit: No Status: Acute Comment: On replacement Code(s): E07.9 - Disorder of thyroid, unspecified (4) Insomnia Current Visit: No Status: Acute Comment: Continue Valium as per neurosurgery team Code(s): G47.00 - Insomnia, unspecified (5) Chronic back pain Current Visit: No Status: Acute Comment: Status post surgery deferred for neurosurgery team for PTOT and discharge planning Code(s): M54.9 - Dorsalgia, unspecified; G89.29 - Other chronic pain Qualifiers: Back pain location: low back pain Back pain laterality: right Sciatica presence: without sciatica Qualified Code(s): M54.5 - Low back pain; G89.29 - Other chronic pain
--- NOTE | 2018-10-07 12:14 | OT.PROG ---
Progress Note Progress Note: S: pt reported that it hurt to be up standing but wanted to be up moving. O: pt was seen in his room and assisted with bed mobility min A. He sat on EOB and completed UE dressing with Min A and LE dressing with Max A due to several medical wires still hooked up. He needed min A to complete sit to stand before PT took over treatment. He was assisted back into bed with min A and left with call light within reach and family present and bed alarm on. A: pt may continue to benefit from therapy to improve his overall function, including transfers. P: continue per POC.
[2018-10-07] MEDS: SILVER SULFADIAZINE 1% TOPICAL PRN ×2 (13:02→20:54)
[2018-10-07] MEDS ORDERED: CYCLOBENZAPRINE 10 MG TABLET PO PRN (14:44)
[2018-10-07] MEDS ORDERED: Hypromellose/Glycerin/PEG 400 Ophth Soln 15 ML DROPS EACH EYE PRN (16:04)
--- NOTE | 2018-10-07 16:39 | PT.PROG ---
Progress Note Progress Note: S. Patient stated that he is in a lot of pain this morning. O. Patient ambulated 60 feet in the flower and back to his room where he was left with OT for further therapy. A. Patient tolerated ambulation fair, he was struggling with pain and was unable to ambulate further, he would continue to benefit from skilled therapy to increase strength, mobility and safety at this time. P. Continue POC.
--- NOTE | 2018-10-07 16:43 | PT.PROG ---
Progress Note Progress Note: S. Patient stated he is feeling better this afternoon, however is still having some pain. O. Patient ambulated 175 feet to the therapy gym where he had heat to his back and performed sit to stands x 3. Patient then ambulated 60 feet to the wheelchair and was returned to his room where he was left with OT for further therapy. A. Patient tolerated ambulation well, however required verbal cues for safe transfers into and out of bed, he would continue to benefit from 1-2 more sessions of skilled therapy to increase safety at this time. P. Continue POC.
--- NOTE | 2018-10-07 16:52 | OT.PROG ---
Progress Note Progress Note: S: pt was in good spirits and did not complain of much pain. He did report that he has difficulty with his vision. O: pt was seen in his room after completing PT. He was educated on sock aid and information assoc before performing with MIn A. He transferred to bed which he needed min A with bed mobility. He was left upright in bed with call light within reach. A: pt participated well and may benefit from completion of sock aid and information assoc x1 more for independence. P; continue per POC.
[2018-10-07] MEDS ORDERED: SIMETHICONE 80 MG TABLET PO PRN (18:22)
[2018-10-07] MEDS: Simvastatin Tab 20 MG TAB PO SCH (20:53)
[2018-10-07] MEDS: traZODone Tab 50 MG TAB PO SCH (20:53)
[2018-10-07] MEDS: BUPROPION HCL 100 MG PO SCH (21:07)
[2018-10-07] MEDS: Acetaminophen 1000mg Inj 1,000 MG/100 ML VIAL IV PRN (23:43)
[2018-10-08] MEDS ORDERED: Sodium Chloride 0.9% 1,000 ML PRIMARY IV ONE
[2018-10-08] MEDS: Cefepime Inj 2 GM in Sodium Chloride 0.9% 100 ML IV SCH ×2 (01:13→08:43)
[2018-10-08] MEDS: Sodium Chloride 0.9% 1,000 ML PRIMARY IV SCH ×3 (01:14→18:36)
[2018-10-08] MEDS: LEVOTHYROXINE 75 MCG TABLET PO SCH (04:34)
[2018-10-08] MEDS: PANTOPRAZOLE 40 MG TABLET PO SCH (07:55)
[2018-10-08] MEDS: DEXTROAMPHETAMINE SULFATE 10 MG PO SCH ×2 (07:56→15:32)
[2018-10-08] MEDS: HYDROcodone-APAP 10 MG-325 MG TABLET PO PRN ×2 (08:42→16:49)
[2018-10-08] MEDS: ESCITALOPRAM 10 MG TABLET PO SCH (08:43)
[2018-10-08] MEDS: TAMSULOSIN 0.4 MG CAPSULE PO SCH (08:43)
[2018-10-08] MEDS: GABAPENTIN 100 MG CAPSULE PO SCH ×3 (08:43→21:42)
[2018-10-08 08:52] LABS: BASOPHILS # (AUTO) 0.01 10*3/UL; BASOPHILS % (AUTO) 0.1 % (0-1); EOSINOPHILS % (AUTO) 1.4 % (0-8); Hematocrit [HCT] 22.8 % (42.0-52.0); Hemoglobin [HGB] 7.4 g/dL (14.0-18.0); LYMPHOCYTES # (AUTO) 1.28 10*3/uL; MEAN CORPUSCULAR HEMOGLOBIN 30.8 PG (27-31); MEAN CORPUSCULAR HGB CONC 32.5 g/dL (33-37); MEAN PLATELET VOLUME 8.2 FL (7.4-12.2); MONOCYTES # (AUTO) 0.56 10*3/UL (0.3-0.8); NEUTROPHILS # (AUTO) 5.07 10*3/UL; NEUTROPHILS % (AUTO) 72.2 % (50-80)
[2018-10-08 08:54] LABS: PLATELET MORPHOLOGY COMMENT NORMAL MORPHOLOGY (NORM); RBC MORPHOLOGY COMMENT NORMAL MORPHOLOGY (NORM); WBC MORPHOLOGY COMMENT NORMAL MORPHOLOGY (NORM)
[2018-10-08 09:03] LABS: BLOOD UREA NITROGEN 12 mg/dL (7-22); BUN/CREATININE RATIO 17.14 (6-20)
--- NOTE | 2018-10-08 10:09 | PDOC(PROG) ---
Interval History: Was called by nursing this morning patient had some abdominal pain he does have a history of ileus in the past CT scan was ordered of the abdomen and pelvis. Patient did have a pretty significant bowel movement this morning is less distended and his pain is resolved. He feels cold also this morning he had this slight fever blood cultures were drawn as well as antibiotics. Hemoglobin is 7.4 patient had been tachycardic over the last 2 or 3 days and is cold I believe this is from all from postop anemia I discussed the case with Dr. Tobias as well and he agrees with the transfusing the patient had 2 units of packed red blood cells most likely this is all from the the anemia and not that and any infection. Patient does not look septic or infected Objective : Data - Labs CBC and BMP: 10/08/18 08:50 10/08/18 08:50 Objective : Exam - General General Appearance: Cooperative - Respiratory Respiratory Exam: Clear to Auscultation - Bilaterally, Breathing Non Labored, Normal To Percussion, Normal to Percussion and Palpation - Cardiovascular Cardiovascular Exam: RRR, No Murmur, No Clicks, No Gallops, No Rubs, PMI Non- Displaced - GI/Abdominal GI/Abdominal Exam: Normal Bowel Sounds, Non Tender, Non Distended, Soft, No Masses, No Hepatomegaly, No Splenomegaly, No Organomegaly Assessment and Plan - Patient Problems (1) Postoperative anemia Current Visit: Yes Status: Acute Comment: Hemoglobin of 7.4, with tachycardia March marginal blood pressures I had to give him 1 L of fluid bolus I will order 2 units of packed red blood cells type and cross discussed with Dr. Tobias as well which is in agreement he believes it's most likely postop anemia since the patient had the long the surgery of about 9 hours nursing in the room Code(s): D64.9 - Anemia, unspecified (2) Chronic back pain Current Visit: No Status: Acute Comment: Status post surgery deferred to neurosurgical team Code(s): M54.9 - Dorsalgia, unspecified; G89.29 - Other chronic pain Qualifiers: Back pain location: low back pain Back pain laterality: right Sciatica presence: without sciatica Qualified Code(s): M54.5 - Low back pain; G89.29 - Other chronic pain (3) Depression Current Visit: No Status: Acute Comment: Stable Code(s): F32.9 - Major depressive disorder, single episode, unspecified (4) Thyroid disease Current Visit: No Status: Acute Code(s): E07.9 - Disorder of thyroid, un specified (5) Insomnia Current Visit: No Status: Acute Code(s): G47.00 - Insomnia, unspecified (6) Confusion Current Visit: No Status: Acute Code(s): R41.0 - Disorientation, unspecified
--- NOTE | 2018-10-08 10:28 | DI ---
EXAM: CT ABDOMEN PELVIS WITHOUT CONTRAST INDICATION: Abdominal pain and distention, status post lumbar spine surgery 10/05/18 TECHNIQUE: Multiple, contiguous 3 mm axial cuts of the abdomen and pelvis are obtained from the lung bases to the ischial tuberosities. Sagittal and coronal reformatted images are available. COMPARISON: None FINDINGS: Lung bases are clear. There is airspace consolidation in the bilateral lower lung gutierrez. These can represent regions of subsegmental atelectasis however correlate for pneumonia clinically. There is coronary artery calcification. Liver: Unenhanced liver is unremarkable. Spleen: Unenhanced spleen is unremarkable. Pancreas: Unenhanced pancreas is unremarkable. Gallbladder: Gallbladder is unremarkable by CT exam. Adrenal glands: Unenhanced adrenal glands are unremarkable. Kidneys: Unenhanced kidneys are unremarkable. No urinary tract stones or hydronephrosis or perinephric inflammatory changes. GI tract: The cecum is lying in the midline epigastric level of the abdomen. There is gaseous distention of the cecum approximately 10 cm transverse dimension. Transverse colon gaseous distention to up to 6 cm and descending colon distention to up to 5 cm. A smooth transition in the caliber is noted at the proximal sigmoid level. No obstructing lesion is seen at the proximal sigmoid level. There are small bowel loops lying right lateral to the right colon. No beak sign involving the colonic loops is identified. No small bowel distention. The sigmoid and rectal caliber are normal. A few diverticula of the sigmoid colon noted without adjacent inflammation to indicate diverticulitis. A minimal degree of pericolonic inflammatory stranding along the descending colon is noted. No associated wall thickening. Appendix: Appendix normal caliber. Urinary bladder: Unopacified urinary bladder is unremarkable. Abdominal aorta: Abdominal aorta normal caliber. There is minimal to mild atherosclerotic calcification abdominal aorta and iliac arteries. Retroperitoneum. No adenopathy. Osseous structures: No acute osseous abnormality. Posterior pedicle screw and israel fusion from L2-L5 level with metallic interposition disc grafts at L2/L3 and L5/S1. Laminectomy at L3 and L4 level. Multilevel degenerative changes of the thoracolumbar spine along with osteoarthritic changes of the hip joints. Lower back cutaneous surgical lori noted. A few air densities in the posterior paraspinous lumbar spine compatible with postsurgical residual air. IMPRESSION: 1. The cecum is lying in the midline epigastric level of the abdomen. There is gaseous distention of the cecum approximately 10 cm transverse dimension. Transverse colon gaseous distention to up to 6 cm and descending colon distention to up to 5 cm. A smooth transition in the caliber is noted at the proximal sigmoid level. No obstructing lesion is seen at the proximal sigmoid level. This raises possibility of colonic ileus. Location of the cecum and also small bowel loops lying right lateral to the right colon can be related to a bascule cecum and also possibility of internal hernia involving small bowel loops. Follow-up is advised to reassess colonic distention. 2. A subtle degree of descending colon pericolonic fat stranding raise possibility of a subtle descending colon colitis without wall thickening. 3. Diverticulosis sigmoid without diverticulitis of the sigmoid. 4. No free fluid or abscess or free air. 5. Appendix normal caliber. 6. Bilateral lower lung field air space consolidations which can represent atelectatic changes however cannot exclude a possible pneumonia. 7. There is coronary artery calcification. 8. No acute osseous abnormality. Posterior pedicle screw and israel fusion from L2-L5 level with metallic interposition disc grafts at L2/L3 and L5/S1. Laminectomy at L3 and L4 level. Multilevel degenerative changes of the thoracolumbar spine along with osteoarthritic changes of the hip joints. Posterior lower back cutaneous surgical lori noted.
[2018-10-08] MEDS ORDERED: ACETAMINOPHEN 325 MG TABLET PO ONE (10:43)
[2018-10-08] MEDS ORDERED: Sodium Chloride 0.9% 500 ML PRIMARY IV ONE (10:43)
[2018-10-08] MEDS ORDERED: FUROSEMIDE 10 MG/1 ML - 2 ML VIAL IVP ONE (10:45)
--- NOTE | 2018-10-08 13:44 | NEURO.PROG ---
Subjective Post Op Day: 2 Pain Management: PO Bhakta Catheter: No Flatus: Yes Diet: Regular Ambulating: Yes Additional Details: LATE NOTE ENTRY Patient seen and evaluated yesterday morning before my surgical case. Awake, alert, and oriented. Surgical pain as expected. Eating/drinking/ambulating. Moving all extremities. Brace in room. PLAN: 1.) Continue post-operative pain control. 2.) Continue to mobilize. Objective : Data - Labs CBC and BMP: 10/08/18 08:50 10/08/18 08:50 - Vital Signs Vital Signs and I&O: Vital Signs - Last Taken Temperature 98.7 F 10/08/18 13:27 Pulse Rate 100 10/08/18 12:56 Respiratory Rate 16 10/08/18 12:56 Blood Pressure 91/59 10/08/18 12:56 Pulse Ox 92 10/08/18 12:56 Intake and Output (24hr x 4 totals) 10/06/18 10/07/18 10/08/18 10/09/18 05:59 05:59 05:59 05:59 Intake Total 7000 / 7000 2290 / 2290 2623 / 2623 Output Total 1840 / 1840 1100 / 1100 750 / 750 Balance 5160 / 5160 1190 / 1190 1873 / 1873
--- NOTE | 2018-10-08 13:50 | NEURO.PROG ---
Subjective Post Op Day: 3 Pain Management: PO Bhakta Catheter: No Flatus: Yes Diet: Regular Ambulating: Yes Additional Details: Awake, alert, and oriented. Lying comfortably in bed. Surgical back pain, but controlled and far less then his pre-operative back pain. Severe right sided low back pain resolved. Some pain in the left leg. Eating, drinking, ambulating. Initially this morning feeling poorly and tachycardic. Feeling much better after bowel movement this morning. Anemic, Hgb dropped from 9 to 7, tachycardia - transfusion ordered by Dr. Schmitz. Full knee flexion, dorsiflexion, plantarflexion strength bilaterally. Ambulating in halls well. PLAN: 1.) Blood transfusion pending. 2.) Continue to mobilize. Objective : Data - Labs CBC and BMP: 10/08/18 08:50 10/08/18 08:50 - Vital Signs Vital Signs and I&O: Vital Signs - Last Taken Temperature 98.7 F 10/08/18 13:27 Pulse Rate 100 10/08/18 12:56 Respiratory Rate 16 10/08/18 12:56 Blood Pressure 91/59 10/08/18 12:56 Pulse Ox 92 10/08/18 12:56 Intake and Output (24hr x 4 totals) 10/06/18 10/07/18 10/08/18 10/09/18 05:59 05:59 05:59 05:59 Intake Total 7000 / 7000 2290 / 2290 2623 / 2623 Output Total 1840 / 1840 1100 / 1100 750 / 750 Balance 5160 / 5160 1190 / 1190 1873 / 1873
[2018-10-08] MEDS ORDERED: diphenhydrAMINE 50 MG/1 ML VIAL IVP ONE ×2 (18:39→18:40)
[2018-10-08] MEDS ORDERED: methylPREDNISolone Succ Inj 250 MG in Sodium Chloride 0.9% 100 ML IV ONE (18:40)
[2018-10-08] MEDS ORDERED: diphenhydrAMINE 50 MG/1 ML VIAL ONE (18:43)
[2018-10-08] MEDS ORDERED: LIDOCAINE HCL 2 % 10 ML JELLY URO-JECT TOPICAL PRN (19:02)
[2018-10-08 19:09] LABS: BASOPHILS # (AUTO) 0.01 10*3/UL; BASOPHILS % (AUTO) 0.2 % (0-1); EOSINOPHILS # (AUTO) 0.16 10*3/UL; EOSINOPHILS % (AUTO) 2.6 % (0-8); Hematocrit [HCT] 30.3 % (42.0-52.0); Hemoglobin [HGB] 9.9 g/dL (14.0-18.0); LYMPHOCYTES # (AUTO) 1.55 10*3/uL; MEAN CORPUSCULAR HEMOGLOBIN 30.3 PG (27-31); MEAN CORPUSCULAR HGB CONC 32.7 g/dL (33-37); MEAN CORPUSCULAR VOLUME 92.7 FL (80-90); MEAN PLATELET VOLUME 8.7 FL (7.4-12.2); MONOCYTES # (AUTO) 0.22 10*3/UL (0.3-0.8); MONOCYTES % (AUTO) 3.6 % (5-15); NEUTROPHILS # (AUTO) 4.09 10*3/UL; NEUTROPHILS % (AUTO) 67.4 % (50-80); RED BLOOD COUNT 3.27 10^6/uL (4.70-6.10)
[2018-10-08] MEDS ORDERED: FUROSEMIDE 10 MG/1 ML - 4 ML IVP ONE (19:09)
[2018-10-08] MEDS ORDERED: FUROSEMIDE 10 MG/1 ML - 4 ML ONE (19:11)
[2018-10-08 19:13] LABS: PLATELET MORPHOLOGY COMMENT NORMAL MORPHOLOGY (NORM); RBC MORPHOLOGY COMMENT NORMAL MORPHOLOGY (NORM); WBC MORPHOLOGY COMMENT NORMAL MORPHOLOGY (NORM)
--- NOTE | 2018-10-08 19:16 | DI ---
XR CXR 1VW,10/08/2018 6:54 PM: Clinical History: Increased oxygen demand. Previous Exam: CTA chest performed October 06, 2018 Findings: A single frontal radiograph of the chest is obtained, and demonstrate some increased interstitial mar kings with some subsegmental atelectasis in the lung bases. Patient is status post bilateral total shoulder arthroplasty. Impression: Subsegmental atelectasis in the lung bases otherwise unremarkable. These are unchanged from the prior exam.
[2018-10-08 19:21] LABS: BLOOD UREA NITROGEN 12 mg/dL (7-22); SERUM ALBUMIN 3.5 g/dL (3.5-4.8)
--- NOTE | 2018-10-08 19:53 | PDOC(PROG) ---
Interval History: Called by nursing the patient was having chills and was hypoxic, blood pressure was okay systolic above 100. Blood products were stopped immediately most likely allergic reaction. 50 of Benadryl IV was given, to 50 of Solu-Medrol was given, Bhakta catheter was inserted, 40 of Lasix was given patient a printout 900 mL I believe he also has the prostate enlargement with retention. Vapotherm was started. Patient improved improved immediately and is talking in full sentences has no further chills and feels back to his normal self he is satting at 94-95% on Vapotherm. CBC CMP in no acute changes other than some elevated LFTs but no white cells or left shift. VBG within normal limits unable to obtain ABG to attempts were done. Lungsclear auscultation bilaterally chest x-ray and no pulmonary edema Heart S1 and S2 and rhythm Abdomen soft and nontender Extremities no clubbing cyanosis or edema Continue to monitor nurse will be 101 tonight with the patient discussed with the at the bedside and the patient himself. I let Dr. Kris Tboias know as well Objective : Data - Labs CBC and BMP: 10/08/18 19:12 10/08/18 19:12 Objective : Exam - Head Head Exam: Normal Inspection, Normocephalic, Atraumatic - Respiratory Respiratory Exam: Clear to Auscultation - Bilaterally, Breathing Non Labored, Normal To Percussion, Normal to Percussion and Palpation - Cardiovascular Cardiovascular Exam: RRR, No Murmur, No Clicks, No Gallops, No Rubs, PMI Non- Displaced - GI/Abdominal GI/Abdominal Exam: Normal Bowel Sounds, Non Tender, Non Distended, Soft, No Masses, No Hepatomegaly, No Splenomegaly, No Organomegaly - Extremities Extremities Exam: No Clubbing Present, No Edema Present, No Cyanosis Present Assessment and Plan - Patient Problems (1) Postoperative anemia Current Visit: Yes Status: Acute Code(s): D64.9 - Anemia, unspecified (2) Chronic back pain Current Visit: No Status: Acute Code(s): M54.9 - Dorsalgia, unspecified; G89.29 - Other chronic pain Qualifiers: Back pain location: low back pain Back pain laterality: right Sciatica presence: without sciatica Qualified Code(s): M54.5 - Low back pain; G89.29 - Other chronic pain (3) Depression Current Visit: No Status: Acute Code(s): F32.9 - Major depressive disorder, single episode, unspecified (4) Thyroid disease Current Visit: No Status: Acute Code(s): E07.9 - Disorder of thyroid, unspecified (5) Insomnia Current Visit: No Status: Acute Code(s): G47.00 - Insomnia, unspecified (6) Confusion Current Visit: No Status: Acute Code(s): R41.0 - Disorientation, unspecified (7) Allergic reaction Current Visit: Yes Status: Acute Comment: Treated with Benadryl, Solu-Medrol, IV Lasix, Bhakta labs were sent for transfusion reaction protocol Code(s): T78.40XA - Allergy, unspecified, initial encounter
[2018-10-08 21:08] LABS: VENOUS PH 7.5 (7.32-7.42)
[2018-10-08] MEDS: traZODone Tab 50 MG TAB PO SCH (21:42)
[2018-10-08] MEDS: Simvastatin Tab 20 MG TAB PO SCH (21:42)
[2018-10-08] MEDS: BUPROPION HCL 100 MG PO SCH (22:16)
[2018-10-09] MEDS ORDERED: LORazepam 2 MG/1 ML VIAL IVP PRN ×2 (03:16→05:41)
[2018-10-09] MEDS: Sodium Chloride 0.9% 1,000 ML PRIMARY IV SCH (03:44)
[2018-10-09] MEDS ORDERED: FUROSEMIDE 10 MG/1 ML - 2 ML VIAL IVP SCH (07:00)
[2018-10-09 07:06] VITALS: BP 111/61; RESP 18; TEMP 98
[2018-10-09 07:55] LABS: BASOPHILS # (AUTO) 0 10*3/UL; BASOPHILS % (AUTO) 0 % (0-1); EOSINOPHILS # (AUTO) 0.01 10*3/UL; EOSINOPHILS % (AUTO) 0.1 % (0-8); Hematocrit [HCT] 27.6 % (42.0-52.0); Hemoglobin [HGB] 9.1 g/dL (14.0-18.0); LYMPHOCYTES # (AUTO) 0.52 10*3/uL; MEAN CORPUSCULAR HEMOGLOBIN 29.9 PG (27-31); MEAN CORPUSCULAR VOLUME 90.8 FL (80-90); MEAN PLATELET VOLUME 8.5 FL (7.4-12.2); MONOCYTES # (AUTO) 0.28 10*3/UL (0.3-0.8); MONOCYTES % (AUTO) 3.9 % (5-15); NEUTROPHILS % (AUTO) 88.3 % (50-80); RED BLOOD COUNT 3.04 10^6/uL (4.70-6.10)
[2018-10-09 08:03] LABS: WBC MORPHOLOGY COMMENT SEE COMMENTS (NORM)
[2018-10-09 08:04] LABS: PLATELET MORPHOLOGY COMMENT SEE COMMENTS (NORM); RBC MORPHOLOGY COMMENT SEE COMMENTS (NORM)
[2018-10-09 08:06] LABS: BLOOD UREA NITROGEN 14 mg/dL (7-22); SERUM ALBUMIN 3.4 g/dL (3.5-4.8)
--- NOTE | 2018-10-09 08:18 | DI ---
XR CXR 1VW,10/09/2018 7:33 AM: Clinical History: Increased oxygen requirement. Previous Exam: October 08, 2018 Findings: A single frontal radiograph of the chest is obtained, and demonstrates prominence of the right perihi lar markings which were not as well delineated on the prior exam. There is subsegmental atelectasis i n the lung bases. Patient is status post right total shoulder arthroplasty and left hemiarthroplasty. Overlying skin lori are seen over the midline. Impression: Mild subsegmental atelectasis in the lung bases otherwise unremarkable. This is essentially unchanged from the prior exam.
[2018-10-09] MEDS: ESCITALOPRAM 10 MG TABLET PO SCH (08:19)
[2018-10-09] MEDS: GABAPENTIN 100 MG CAPSULE PO SCH (08:19)
[2018-10-09] MEDS: LEVOTHYROXINE 75 MCG TABLET PO SCH (08:19)
[2018-10-09] MEDS: PANTOPRAZOLE 40 MG TABLET PO SCH (08:20)
[2018-10-09] MEDS: TAMSULOSIN 0.4 MG CAPSULE PO SCH (08:20)
[2018-10-09] MEDS: DEXTROAMPHETAMINE SULFATE 10 MG PO SCH (08:20)
[2018-10-09] MEDS ORDERED: POTASSIUM CHLORIDE 20 MEQ TAB PO SCH (09:00)
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
[2018-10-09 09:34] VITALS: O2SAT 94
[2018-10-09 09:36] LABS: BILIRUBIN,URINE NEGATIVE (NEG); CLARITY,URINE CLEAR (CLEAR); COLOR,URINE YELLOW (Y); GLUCOSE, URINE (UA) NEGATIVE (NEG); OCCULT BLOOD,URINE SMALL (NEG); PROTEIN,URINE NEGATIVE (NEG); UROBILINOGEN,URINE 0.2 EU/dL (0.2)
[2018-10-09 09:38] LABS: URINE SAMPLE TYPE UCC
[2018-10-09 09:43] LABS: BACTERIA,URINE RARE; WBC,URINE RARE
--- NOTE | 2018-10-09 10:14 | PDOC(PROG) ---
Interval History: Patient is a doing well very agitated. Speak in full sentences after Jatinder in the room as well when I asked him how he was doing he said that he was "pissed " continued saying how bad the night nurses were with her foul language. Patient was redirected I asked him if he had any chest pain nausea vomiting he feels had a bowel movement. He denied chest pain nausea vomiting did have a bowel movement and felt much better. Again I told him that he had a mild allergic reaction most likely to the transfusion but the resolved with the st eroids and Benadryl in the matter of 30 minutes .last night he did well with oxygenation overnight. This morning he was about 93-94% on 2 L dropped down to 87 without oxygen. The chest x-ray and labs show some atelectasis .I instructed the patient to continue taking deep breaths and to have an incentive spirometry patient will be discharged by Dr. Tobias he will be going home with oxygen. Discussed the case with Dr. Tobias patient might be having some sundowning . Her told me that the patient told his staff that he gets very belligerent after surgery usually. The reason why he very angry this morning was because he wanted to just go home .His is also at the bedside and all questions answered ,she was also at the bedside during his allergic reaction and all questions were answered at that point as well. She told me that she was very grateful for the care received during his allergic reaction and how fast he got better. He will follow-up with Dr. Tobias and outpatient I reviewed his meds have recommended to Dr. Tobias that we should stop the Valium I did give him Flomax most likely he has some urinary obstruction FLomax seems to help he did urinate on his own this morning. I told the last evening and the patient to follow-up with primary care ph ysician and possible urology follow-up for possible enlarged prostate they said they would do this when they went back to [place]. I asked the patient to can examine his heart and lungs he agreed to have me listen to his heart and lungs. At this point Dr. Tobias nurse Oscar and his and nursing were all in the room. Objective : Data - Labs CBC and BMP: 10/09/18 07:45 10/09/18 07:45 Objective : Exam - Respiratory Respiratory Exam: Clear to Auscultation - Bilaterally, Breathing Non Labored, Normal To Percussion, Normal to Percussion and Palpation - Cardiovascular Cardiovascular Exam: RRR (Asked permission to examine the patient permission granted nurse Chase in room), No Murmur, No Clicks, No Gallops, No Rubs, PMI Non-Displaced - Neurological Neurological Exam: Alert, No Facial Droop, Speech Intact / Clear, Moves All Extremities Equally - Psychiatric Psychiatric Exam: Agitated Assessment and Plan - Patient Problems (1) Postoperative anemia Status: Acute Comment: Resolved status post transfusion tachycardia improved. Patient had mild allergic reaction transfusion reaction protocol activated night nurse checked with the pathologist they said that the patient could receive could receive blood in the future if needed no antibodies. See HPI Code(s): D64.9 - Anemia, unspecified (2) Chronic back pain Status: Acute Comment: Defer to Dr tobias he is in the room with pt inregards to post pain and pt ot orders and follow up Code(s): M54.9 - Dorsalgia, unspecified; G89.29 - Other chronic pain Qualifiers: Back pain location: low back pain Back pain laterality: right Sciatica presence: without sciatica Qualified Code(s): M54.5 - Low back pain; G89.29 - Other chronic pain (3) Depression Status: Acute Comment: cont home meds Code(s): F32.9 - Major depressive disorder, single episode, unspecified (4) Thyroid disease Status: Acute Comment: cont home meds Code(s): E07.9 - Disorder of thyroid, unspecified (5) Insomnia Status: Acute Comment: pt is on trazodone and Lexapro Code(s): G47.00 - Insomnia, unspecified (6) Allergic reaction Status: Acute Comment: At this is resolved. Patient still requiring some oxygen x-ray no acute findings just atelectasis recommended incentive spirometry and will be going home with O2 Code(s): T78.40XA - Allergy, unspecified, initial encounter
--- NOTE | 2018-10-09 10:59 | OT.PROG ---
Progress Note Progress Note: Occupational Therapy S: Pt. is awake, alert, and agitated. He reported that he was feeling "fine" and he refused to participate in therapy session. O: Attempted therapy session at 0930. Pt. refused. He was again educated on post-surgical back precautions. A: At this time, therapy was unable to assess pt.'s safety for return to home with ambulation, dressing, log rolling techniques and performing stairs due to pt. refusing. Per nursing report, pt. was up in his room ambulating without a walker and without his back brace. P: Continue POC until discharge. HERMILO Rodriguez/Clare
--- NOTE | 2018-10-10 12:13 | OT PM DAY ---
Diagnosis : Lumbar Fusion PM - Occupational Therapy S: The patient does report that he is in pain this morning; however, he wants to get up and move and see if this will assist with the pain. Overall the patient is doing better than he was yesterday. The patient also reports that he is going to be receiving blood. Nursing reports they will get his IV started as soon as therapy is over. O: The patient was sitting propped up in bed. He demonstrated the ability to move from sitting propped up to edge of bed with moderate assistance. He required assistance to pull his body upright with his hands. While sitting edge of bed, the patient demonstrated the ability to don his back brace with minimal assistance and minimal verbal cues. He completed a sit to stand transfer with contact guard assist for safety with use of the gait belt. The patient demonstrated the ability to ambulate with standard walker x150 feet around the nurse's station, demonstrating good safety awareness while remaining inside the walker frame. Initially the patient's pace was slow; he did increase his pace as we walked. The patient was on two liters of oxygen during occupational therapy session this morning. Upon returning to his room, the patient demonstrated the ability to complete a log roll technique transfer with moderate verbal cueing. He was able to bring his legs into bed independently; however, the patient may benefit from continued practice with the log rolling technique. A: The patient tolerated treatment session well and had good mobility with no losses of balance. He may benefit from continued practice of donning his back brace, bed rolling techniques, functional mobility, and lower extremity dressing tasks. P: Continue seeing patient BID during the week and one time per day over the weekend for upper extremity strengthening, ADLs, and overall functional mobility. JACKD
--- NOTE | 2018-10-10 14:49 | OTI REPORT ---
Thank you for the referral of Aidan Adhikari. He was seen on 10/03/18 for an occupational therapy inpatient evaluation status post lumbar fusion. SUBJECTIVE: The patient is a 68-year-old male who is being seen secondary to having a low back fusion. His was present during the session today. The patient was slightly out of it from pain medication. PAST MEDICAL HISTORY: Past medical history can be found in the patient's medical record. OBJECTIVE FINDINGS: Activities of daily living: We did practice with the entry level software engineer and sock aide. The patient did need mod assist for use of both. He was able to complete lower extremity dressing with mod assist and required max assist to bring pants from knee to waist level. He needed to hold onto the walker to keep his balance. Bed mobility: The patient required mod assist to move his lower extremities into bed and complete a log roll. Transfers: The patient completed a functional transfer to the bed with mod assist. The patient is still pretty wobbly on his feet and not quite safe to be on his own yet. ASSESSMENT: The patient's states she will not be home with him all the time upon returning home. She states they will contemplates the shower chair and a toilet seat, but she wanted to discuss this with the patient more once he is apt to make better decisions. Problem List: Patient would benefit from education on adaptive devices and back precautions Decreased ability to complete safe transfers Short-Term Goals: To be met by discharge from inpatient: Patient will be able to dress self with min verbal cues and adaptive devices. Patient will be able to complete all functional transfers with stand by assistance. Patient will be able to demonstrate back precautions while completing ADLs and using adaptive devices. Long-Term Goals: To be met following discharge from inpatient: Patient will return home demonstrating safety and independence with all ADLs with adaptive devices. TREATMENT PLAN: Patient will be seen B.I.D during the week and one time per day over the weekend as an inpatient to address the above goals and objectives. INITIAL TREATMENT: Treatment today consisted of the initial evaluation. The patient was issued a entry level software engineer, sock aide, and bath sponge. JUDI
--- NOTE | 2018-10-11 15:20 | NEURO.DC ---
Discharge Summary Admit Date: 10/05/18 Discharge Date: 10/09/18 Admitting Diagnosis: Low back pain Seconadry Diagnosis: 1.) Multilevel lumbar degenerative disc disease. 2.) Multilevel lumbar spondylosis. 3.) S/P previous lumbar surgical procedures. Discharge Diagnosis: S/P Multilevel lumbar interbody and posterolateral fusion. Primary Surgery and Date: L2-3, L3-4, L4-5 interbody fusion/L2-L5 posterolateral instrumented fusion. Hospital Course: Mr. Adhikari was admitted on 10/05/2018 and underwent a L2-3, L3-4, L4-5 interbody and posterolateral instrumented fusion. Post-operatively he was transferred to the medical/surgical floor. He was continued on post-operative antibiotics and his post-operative pain was brought under control with PO analgesics. His diet was advanced. Post-op day #1, his catheter was removed. He was fitted for a lumbar brace and he was progressively mobilized. POD #3 his H/H was low and he underwent a blood transfusion. He did have a reaction to the blood transfusion, but this was treated by the hospitalist. On post-op day #4, 10/09/2018 he was very agitated and wanted to leave and this post was medically ready for discharge and was subsequently discharged to home per his request. His back pain during the post-operative period and at the time of discharge was markedly improved compared to his pre-operative back pain. He was not discharged on any pain meds as he stated that he had some at home. Discharge Medications: Discharge Medications bupropion HCl 100 mg tablet 100 mg PO BID 05/12/18 [History] dextroamphetamine 10 mg tablet 10 mg PO BID 05/12/18 [History] escitalopram 20 mg tablet 20 mg PO QDAY tab 05/12/18 [History] gabapentin 100 mg capsule 100 mg PO TID cap 05/12/18 [History] levothyroxine 75 mcg capsule 75 mcg PO QDAY 05/12/18 [History] simvastatin 20 mg tablet 20 mg PO QPM 05/12/18 [History] trazodone 100 mg tablet 100 mg PO QDAY 05/12/18 [History] zolpidem 5 mg tablet 5 mg PO QHS PRN 05/12/18 [History] cyclobenzaprine 5 mg tablet 5 mg PO QDAY PRN #60 tab 09/22/18 [Rx] RX: HYDROcodone/APAP 10325 Tab [Hydrocodon-Acetaminoph 10325 Tab] 1 - 2 tab PO Q4H PRN tab 10/09/18 [Rx] RX: Tamsulosin HCl [Flomax] 0.4 mg PO DAILY #30 cap 10/09/18 [Rx] Follow-Up: Kris Tobias [STAFF PHYSICIAN] - 10/20/18 10:30 am NONE,NONE [Primary Care Provider] - As Needed Discharge Instructions Provided to Patient / Family: Anemia (DC) Exam - Vitals Vital Signs: Vital Signs Temperature 98 F Temperature Source Temporal Artery Scan Pulse Rate [Pulse Oximeter] 98 Pulse Rate 81 Respiratory Rate 18 Blood Pressure [Left Arm] 137/69 Blood Pressure [Right Arm] 111/61 Blood Pressure 143/68 Pulse Ox 94 Oxygen Flow Rate 2 Oxygen Delivery Method Nasal Cannula Height 5 ft 8 in Weight 184 lb
== END 2018-10-09 11:12 | disposition home or self-care (01) | DRG 454 ==
LOC: OPS 05:38 → MED/SURG 18:49
PROVIDERS: ADMIT Neurological Surgery; ATTEND Neurological Surgery